=== PATIENT | male | born 1990 | race Caucasian/White ===

== ENCOUNTER → 2024-07-24 12:15 | Outpatient (REF) | payer OTHER, SELFPAY | LOC: WOUND 12:15 | PROVIDERS: ATTENDING PHYSICIAN Surgery; FAMILY PHYSICIAN Family Medicine | DX: S51.801A Unspecified open wound of right forearm, initial encounter (principal); F11.20 Opioid dependence, uncomplicated; X58.XXXA Exposure to other specified factors, initial encounter | CPT/HCPCS: 97597; 97598; 99203 ==

== ENCOUNTER → 2024-08-07 13:16 | Outpatient (REF) | payer OTHER, SELFPAY | LOC: WOUND 13:16 | PROVIDERS: ATTENDING PHYSICIAN Surgery; FAMILY PHYSICIAN Family Medicine | DX: S51.801A Unspecified open wound of right forearm, initial encounter (principal); F11.20 Opioid dependence, uncomplicated; X58.XXXA Exposure to other specified factors, initial encounter | CPT/HCPCS: 99213 ==

== ENCOUNTER → 2024-08-21 13:30 | Outpatient (REF) | payer OTHER, SELFPAY | LOC: WOUND 13:30 | PROVIDERS: ATTENDING PHYSICIAN Surgery; FAMILY PHYSICIAN Family Medicine | DX: S51.801A Unspecified open wound of right forearm, initial encounter (principal); X58.XXXA Exposure to other specified factors, initial encounter | CPT/HCPCS: 99213 ==